=== PATIENT | male | born 1980 | race Caucasian/White ===

== ENCOUNTER 2017-03-13 17:39 | Emergency (ER) | payer MEDICAID ==
[~2017-03-13] VITALS: Ht 172.7 cm; Wt 68.0 kg
[~2017-03-13 17:39] MED LIST: CIPRO 500MG TA500 MG PO; KEFLEX 500MG.500 MG PO; MEDROL 4MG. DOSE4 MG PO
--- OUTSIDE RECORDS SUMMARY | 2017-03-13 17:45 | External Medical Summary Rpt | CCD ---
Author Author , LUIS SMITH Address Unknown Phone [email or web address] Care Team Providers Care Primary Health Care Nurse Name Role Phone [facility] Unavailable Unavailable INC, [facility], Unavailable Unavailable [facility], Unavailable Unavailable [facility] Purpose Continuity of Care Document - 02-07-2016 through 2016 Problems Code Diagnosis DOS Provider Status [id number] SUPERFICIAL 11-24-2016 [facility] BODY LT INC HAND INITIAL ENCNTR Z23 ENCOUNTER 11-24-2016 [facility] FOR [facility] IMMUNIZATIO INC N [id number] PERSONAL 11-24-2016 [facility] NICOTINE INC DEPENDENCE Z0100 ENCOUNTER 02-07-2016 [facility] EXAM EYES & GRE VISION W/O ABNORMAL FIND Medications Na ND Rx Da Fi Fi Am Da Di Ph RX Ph St me C No te ll ll ou ys ag ar # ys at rm s nt no ma ic us Or Da si cy ia de te s n re d ES 65 09 09 30 30 00 RI Ac CI 86 -0 -2 .0 00 TE ti TA 20 6- 9- 00 01 ve LO 37 20 20 19 AI OK 50 17 17 34 D AM 1 77 PH AR 20 MA CY MG #3 TA 93 BL 8 ET ES 65 07 08 30 30 00 RI Ac CI 86 -2 -2 .0 00 TE ti TA 20 7- 5- 00 01 ve LO 37 20 20 19 AI OK 50 17 17 34 D AM 1 77 PH AR 20 MA CY MG #3 TA 93 BL 8 ET CE 65 07 08 40 10 00 RI Ac PH 86 -1 -0 .0 00 TE ti AL 20 1- 4- 00 01 ve EX 01 20 20 19 AI IN 90 17 17 13 D 1 58 PH 50 AR 0 MA MG CY CA #3 PS 93 UL 8 E ES 65 05 06 14 14 00 RI Ac CI 86 -0 -0 .0 00 TE ti TA 20 9- 2- 00 01 ve LO 37 20 20 18 AI OK 40 17 17 32 D AM 1 10 PH AR 10 MA CY MG #3 TA 93 BL 8 ET ES 65 04 05 14 14 00 RI Ac CI 86 -1 -0 .0 00 TE ti TA 20 2- 5- 00 01 ve LO 37 20 20 17 AI OK 40 17 17 97 D AM 1 03 PH AR 10 MA CY MG #3 TA 93 BL 8 ET [place] 50 04 05 [address] 38 -1 -0 0. 00 TE ti AT 30 2- 5- 00 01 ve IN 58 20 20 0 17 AI 71 17 17 97 D 10 6 04 PH 0, AR 00 MA 0 CY UN IT #3 /M 93 L 8 [place] SP BU 00 02 03 60 30 00 RI Ac OK 18 -0 -1 .0 00 TE ti OP 50 9- 0- 00 01 ve IO 41 20 20 16 AI N 00 17 17 87 D HC 1 59 PH L AR SR MA CY 10 0 #3 MG 93 8 TA BL ET [place] 60 01 02 [address] 43 -2 -2 0. 00 TE ti AT 20 7- 4- 00 01 ve IN 53 20 20 0 16 AI 71 17 17 87 D 10 6 56 PH 0, AR 00 MA 0 CY UN IT #3 /M 93 L 8 [place] SP AM 00 01 02 20 10 00 RI Ac OX 78 -2 -2 .0 00 TE ti IC 12 7- 4- 00 01 ve IL 61 20 20 16 AI LI 30 17 17 87 D N 5 58 PH 50 AR 0 MA MG CY CA #3 PS 93 UL 8 E BU 00 01 02 60 30 00 RI Ac OK 18 -1 -1 .0 00 TE ti OP 50 7- 0- 00 01 ve IO 41 20 20 16 AI N 00 17 17 72 D HC 1 05 PH L AR SR MA CY 10 0 #3 MG 93 8 TA BL ET BU 00 12 01 30 30 00 RI Ac OK 37 -1 -1 .0 00 TE ti OP 83 6- 3- 00 01 ve IO 41 20 20 16 AI N 10 16 17 28 D HC 1 33 PH L AR SR MA CY 10 0 #3 MG 93 8 TA BL ET LI 50 12 01 10 5 00 RI Ac DO 38 -0 -0 0. 00 TE ti CA 30 8- 9- 00 01 ve IN 77 20 20 0 16 AI E 50 16 17 16 D 2% 4 83 PH AR MA SC CY OU S #3 SO [address] 8 IB 67 12 01 30 10 00 RI Ac UP 87 -0 -0 .0 00 TE ti RO 70 8- 9- 00 01 ve FE 32 20 20 16 AI N 10 16 17 17 D 80 5 30 PH 0 AR MG MA CY TA BL #3 ET 93 8 ME 00 12 01 21 6 00 RI Ac TH 78 -0 -0 .0 00 TE ti YL 15 8- 9- 00 01 ve OK 02 20 20 16 AI ED 20 16 17 16 D NI 7 80 PH SO AR LO MA NE CY 4 #3 MG 93 8 DO SE PK AM 00 12 01 30 10 00 RI Ac OX 78 -0 -0 .0 00 TE ti IC 12 8- 9- 00 01 ve IL 61 20 20 16 AI LI 30 16 17 16 D N 5 81 PH 50 AR 0 MA MG CY CA #3 PS 93 UL 8 E OK 00 12 01 15 3 00 RI Ac OM 60 -0 -0 .0 00 TE ti ET 35 8- 9- 00 01 ve KEMP 43 20 20 16 AI ZI 82 16 17 16 D NE 1 82 PH AR 25 MA CY MG #3 TA 93 BL 8 ET Procedures Procedure DOS Code Location Performer Comment UNCLASSIF [id number] [facility] [address] [facility] 6 GRE GRE XM&EVAL COMPRE NEW PT 1/> VST OPH 60583 [facility] 6 GRE GRE XM&EVAL COMPRHNSV [facility] PT 1/> Encounters Encounter Start End Date Code Location Performer Type Date [facility] - [facility] T
--- OUTSIDE RECORDS SUMMARY | 2017-03-13 17:45 | External Medical Summary Rpt | CCD ---
Author Author , LUIS SMITH Address Unknown Phone [email or web address] [facility] Care Team Providers Care Auto Painter Name Role Phone [facility] Unavailable Unavailable INC, [facility], Unavailable Unavailable [facility], Unavailable Unavailable [facility] Purpose Continuity of Care Document - 02-07-2016 through 2016 Problems Code Diagnosis DOS Provider Status [id number] SUPERFICIAL 11-24-2016 [facility] BODY LT INC HAND INITIAL ENCNTR Z23 ENCOUNTER 11-24-2016 [facility] IMMUNIZATIO INC N [id number] PERSONAL 11-24-2016 [facility] NICOTINE INC DEPENDENCE Z0100 ENCOUNTER 02-07-2016 [facility] EXAM EYES & GRE VISION W/O ABNORMAL [...] ve LO 37 20 20 19 AI DC 50 17 17 34 D AM 1 77 PH AR 20 MA CY MG #3 TA 93 BL 8 ET ES 65 07 08 30 30 00 RI Ac CI 86 -2 -2 .0 00 TE ti TA 20 7- 5- 00 01 ve LO 37 20 20 19 AI DC 50 17 17 34 D AM 1 [...] ve LO 37 20 20 18 AI DC 40 17 17 32 D AM 1 10 PH AR 10 MA CY MG #3 TA 93 BL 8 ET ES 65 04 05 14 14 00 RI Ac CI 86 -1 -0 .0 00 TE ti TA 20 2- 5- 00 01 ve LO 37 20 20 17 AI DC 40 17 17 97 D AM 1 [...] 02 03 60 30 00 RI Ac DC 18 -0 -1 .0 00 TE ti [...] 01 02 60 30 00 RI Ac DC 18 -1 -1 .0 00 TE ti OP 50 7- 0- 00 01 ve IO 41 20 20 16 AI N 00 17 17 72 D HC 1 05 PH L AR SR MA CY 10 0 #3 MG 93 8 TA BL ET BU 00 12 01 30 30 00 RI Ac DC 37 -1 -1 .0 00 TE ti [...] YL 15 8- 9- 00 01 ve DC 02 20 20 16 AI ED 20 [...] CA #3 PS 93 UL 8 E DC 00 12 01 15 3 00 RI [...] [facility] OPH[facility] [address] [facility] 6 GRE GRE XM&EVAL COMPRE NEW PT 1/> VST OPH [address] [facility] 6 GRE GRE XM&EVAL COMPRHNSV [facility] PT 1/> Encounters Encounter Start End Date Code Location Performer Type Date [facility] - [facility] T
--- OUTSIDE RECORDS SUMMARY | 2017-03-13 17:45 | External Medical Summary Rpt | CCD ---
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 Name Role Phone [facility] Unavailable Unavailable INC, [facility], Unavailable Unavailable [facility], Unavailable Unavailable [facility] Purpose Continuity of Care Document - 02-07-2016 through 2016 Problems Code Diagnosis DOS Provider Status [id number] SUPERFICIAL 11-24-2016 [facility] BODY LT INC HAND INITIAL ENCNTR Z23 ENCOUNTER 11-24-2016 [facility] IMMUNIZATIO INC N [id number] PERSONAL 11-24-2016 [facility] [...] ve LO 37 20 20 19 AI DE 50 17 17 34 D AM 1 77 PH AR 20 MA CY MG #3 TA 93 BL 8 ET ES 65 07 08 30 30 00 RI Ac CI 86 -2 -2 .0 00 TE ti TA 20 7- 5- 00 01 ve LO 37 20 20 19 AI DE 50 17 17 34 D AM 1 [...] ve LO 37 20 20 18 AI DE 40 17 17 32 D AM 1 10 PH AR 10 MA CY MG #3 TA 93 BL 8 ET ES 65 04 05 14 14 00 RI Ac CI 86 -1 -0 .0 00 TE ti TA 20 2- 5- 00 01 ve LO 37 20 20 17 AI DE 40 17 17 97 D AM 1 [...] 02 03 60 30 00 RI Ac DE 18 -0 -1 .0 00 TE ti [...] 01 02 60 30 00 RI Ac DE 18 -1 -1 .0 00 TE ti OP 50 7- 0- 00 01 ve IO 41 20 20 16 AI N 00 17 17 72 D HC 1 05 PH L AR SR MA CY 10 0 #3 MG 93 8 TA BL ET BU 00 12 01 30 30 00 RI Ac DE 37 -1 -1 .0 00 TE ti OP 83 6- 3- 00 01 ve IO 41 20 20 16 AI N 10 16 17 28 D HC 1 33 PH L AR SR MA CY 10 0 #3 MG 93 8 TA BL ET ME 00 12 01 21 6 00 RI Ac TH 78 -0 -0 .0 00 TE ti YL 15 8- 9- 00 01 ve DE 02 20 20 16 AI ED 20 [...] CA #3 PS 93 UL 8 E DE 00 12 01 15 3 00 RI Ac OM 60 -0 -0 .0 00 TE ti ET 35 8- 9- 00 01 ve KEMP 43 20 20 16 AI ZI 82 16 17 16 D NE 1 82 PH AR 25 MA CY MG #3 TA 93 BL 8 ET LI 50 12 01 10 5 [...] CY TA BL #3 ET 93 8 Procedures Procedure DOS Code Location Performer Comment UNCLASSIF [id number] [facility] O[facility] [address] [facility] 6 GRE GRE XM&EVAL COMPRE NEW PT 1/> VST OPH 54687 [facility] 6 GRE GRE XM&EVAL COMPRHNSV [facility] PT 1/> Encounters Encounter Start End Date Code Location Performer Type Date [facility] - [facility] T
--- OUTSIDE RECORDS SUMMARY | 2017-03-13 17:45 | External Medical Summary Rpt | CCD ---
Author Author , LUIS SMITH Address Unknown Phone [email or web address] Care Team Providers Care Piping Manager Name Role Phone [facility] Unavailable Un[facility] INC, [facility], Unavailable Unavailable [facility], Unavailable Unavailable [facility] Purpose Continuity of Care Document - 02-07-2016 through 2016 Problems Code Diagnosis DOS Provider Status [id number] SUPERFICIAL 11-24-2016 [facility] BODY LT INC HAND INITIAL ENCNTR Z23 ENCOUNTER 11-24-2016 [facility] IMMUNIZATIO INC N [id number] PERSONAL 11-24-2016 [facility] [...] ve LO 37 20 20 19 AI NH 50 17 17 34 D AM 1 77 PH AR 20 MA CY MG #3 TA 93 BL 8 ET ES 65 07 08 30 30 00 RI Ac CI 86 -2 -2 .0 00 TE ti TA 20 7- 5- 00 01 ve LO 37 20 20 19 AI NH 50 17 17 34 D AM 1 [...] ve LO 37 20 20 18 AI NH 40 17 17 32 D AM 1 10 PH AR 10 MA CY MG #3 TA 93 BL 8 ET ES 65 04 05 14 14 00 RI Ac CI 86 -1 -0 .0 00 TE ti TA 20 2- 5- 00 01 ve LO 37 20 20 17 AI NH 40 17 17 97 D AM 1 [...] 02 03 60 30 00 RI Ac NH 18 -0 -1 .0 00 TE ti [...] 01 02 60 30 00 RI Ac NH 18 -1 -1 .0 00 TE ti OP 50 7- 0- 00 01 ve IO 41 20 20 16 AI N 00 17 17 72 D HC 1 05 PH L AR SR MA CY 10 0 #3 MG 93 8 TA BL ET BU 00 12 01 30 30 00 RI Ac NH 37 -1 -1 .0 00 TE ti [...] YL 15 8- 9- 00 01 ve NH 02 20 20 16 AI ED 20 [...] CA #3 PS 93 UL 8 E NH 00 12 01 15 3 00 RI [...] [facility] OPH[facility] [address] [facility] 6 GRE GRE XM&EVAL COMPRE NEW PT 1/> VST OPH [address] [facility] 6 GRE GRE XM&EVAL COMPRHNSV [facility] PT 1/> Encounters Encounter Start End Date Code Location Performer Type Date [facility] - [facility] T
--- OUTSIDE RECORDS SUMMARY | 2017-03-13 17:46 | External Medical Summary Rpt ---
Author Author LUIS Marie, LUIS Marie Organization [employer] Address Unknown Phone Unavailable
--- OUTSIDE RECORDS SUMMARY | 2017-03-13 17:46 | External Medical Summary Rpt | CCD ---
Demographics Preferred Language Peruvian Marital Status Unknown Caodaism Affiliation Unknown Race Unknown Ethnic Group Unknown Author Author , LUIS SMITH Address Unknown Phone Immunization No patient found.
--- OUTSIDE RECORDS SUMMARY | 2017-03-13 17:46 | External Medical Summary Rpt | CCD ---
Demographics Preferred Language Barbadian Marital Status Unknown Episcopalian Affiliation Unknown Race Unknown Ethnic Group Unknown Author Author , LUIS SMITH Address Unknown Phone Immunization No patient found.
--- NOTE | 2017-03-13 18:26 | Emergency Room Report ---
History of Present Illness Time Seen by [id number] Presenting Problem in Triage Pt arrived:Walked Presenting Problem:POSSIBLE METAL FB IN R EYE X2 DAYS. 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 N Clinical Suspician of Infection? N Mental Status: 1 - Regular (Normal Baseline) Sepsis Risk:Low Sepsis Risk Have you (or family members/close friends) recently traveled outside the [place]? N If Yes, where/when: Have you had exposure to infectious disease within the past month? N TB? Other? Specify: Source patient, RN notes reviewed Exam Limitations no limitations Comment Pt was using some self tapping screws 2 days ago and got something in his right eye Cardiac Chest Pain Chest pain indicative of cardiac No ALLERGIES Coded Allergies: No Known Allergies (11/24/16) Home Medications Reported Medications No Known Home Medications History Medical History General Angina: No [place]: No Hypertension? No Hyperlipidemia? No COPD? No Asthma? Yes CVA? No Seizures? No Diabetes? No GB Disease: No MRSA? No TB? No Cancer? No Immunization Hx DT/Tetanus Unknown Surgical Hx Previous Surgery?N Social History Smoking Hx Packs/day < 1 Pack Alcohol Alcohol: No Review of Systems All Other Systems Reviewed and Negative Eyes see HPI Physical Exam Vital Signs Vital Signs Date Time Temp Pulse Resp B/P Pulse O2 O2 Flow FiO2 Ox Delivery Rate 03/13 1749 98.0 100 18 144/78 99 General Appearance normal appearance, WD/WN, no apparent distress Eye Exam - right eye other (Foreign body in right cornea) Respiratory Status No: respiratory distress. 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 No Results/Orders Current Medication Orders Sig/Ana Start time Last Medication Dose Route Stop Time Status Admin Miscellaneous 0 .STK-MED ONE 03/13 1817 DC XX Departure Departure Time of Disposition 1822 Disposition DC Home or Self Care(routine) Clinical Impression Primary Impression: Foreign body of right cornea Qualifiers: Encounter type: initial encounter Qualified Code: T15.01XA - Foreign body in cornea, right eye, initial encounter Condition STABLE Patient Instructions DI for Foreign Body in the Eye Additional Instructions Use Gentamicin drops every 4 hours while awake and followup with Dr. Dobbs in the AM at 10 at his office Discharge Counseling Counseled pt/family regarding diagnosis, follow up needs Prescriptions Current Visit Scripts No Known Home Medications ED Critical Care Critical Care No If Critical Care minutes are documented, the time involved in the performance of seperately reportable procedures was not counted toward critical care time documented. I directly delivered medical care to this critically ill and/or injured patient. Timely evaluation and treatment was necessary to address the significant organ system(s) dysfunction present in this patient. at [id number]
--- NOTE | 2017-03-13 18:26 | Emergency Room Report ---
History of Present Illness Time Seen by [id number] Presenting Problem in Triage Pt arrived:Walked Presenting Problem:POSSIBLE METAL FB IN R EYE X2 DAYS. 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 N Clinical Suspician of Infection? N Mental Status: 1 - Regular (Normal Baseline) Sepsis Risk:Low Sepsis Risk Have you (or family members/close friends) recently traveled outside the [place]? N If Yes, where/when: Have you had exposure to infectious disease within the past month? N TB? Other? Specify: Source patient, RN notes reviewed Exam Limitations no limitations Comment Pt was using some self tapping screws 2 days ago and got something in his right eye Cardiac Chest Pain Chest pain indicative of cardiac No ALLERGIES Coded Allergies: No Known Allergies (11/24/16) Home Medications Reported Medications No Known Home Medications History Medical History General Angina: No [place]: No Hypertension? No Hyperlipidemia? No COPD? No Asthma? Yes CVA? No Seizures? No Diabetes? No GB Disease: No MRSA? No TB? No Cancer? No Immunization Hx DT/Tetanus Unknown Surgical Hx Previous Surgery?N Social History Smoking Hx Packs/day < 1 Pack Alcohol Alcohol: No Review of Systems All Other Systems Reviewed and Negative Eyes see HPI Physical Exam Vital Signs Vital Signs Date Time Temp Pulse Resp B/P Pulse O2 O2 Flow FiO2 Ox Delivery Rate 03/13 1749 98.0 100 18 144/78 99 General Appearance normal appearance, WD/WN, no apparent distress Eye Exam - right eye other (Foreign body in right cornea) Respiratory Status No: respiratory distress. 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 No Results/Orders Current Medication Orders Sig/Ana Start time Last Medication Dose Route Stop Time Status Admin Miscellaneous 0 .STK-MED ONE 03/13 1817 DC XX Departure Departure Time of Disposition 1822 Disposition DC Home or Self Care(routine) Clinical Impression Primary Impression: Foreign body of right cornea Qualifiers: Encounter type: initial encounter Qualified Code: T15.01XA - Foreign body in cornea, right eye, initial encounter Condition STABLE Patient Instructions DI for Foreign Body in the Eye Additional Instructions Use Gentamicin drops every 4 hours while awake and followup with Dr. Dobbs in the AM at 10 at his office Discharge Counseling Counseled pt/family regarding diagnosis, follow up needs Prescriptions Current Visit Scripts No Known Home Medications ED Critical Care Critical Care No If Critical Care minutes are documented, the time involved in the performance of seperately reportable procedures was not counted toward critical care time documented. I directly delivered medical care to this critically ill and/or injured patient. Timely evaluation and treatment was necessary to address the significant organ system(s) dysfunction present in this patient. at [id number]
[2017-03-13 18:30] VITALS: BP 144/78
== END 2017-03-13 18:32 | disposition home or self-care (01) ==
LOC: UTC 17:39 → ER 17:43 → UTC 17:43 → ER 18:32
DX: T15.01XA Foreign body in cornea, right eye, initial encounter (principal)